=== PATIENT | female | born 1960 | race Caucasian/White ===

== ENCOUNTER → 2018-11-20 | Outpatient (CLI) | payer OTHER ==
--- NOTE | 2018-11-20 18:19 | CONS ---
Assessment/Plan Assessment/Plan Hospital Course (Demo Recall) This is a 58-year-old morbidly obese female with right knee pain. She has fairly advanced osteoarthritis of her right knee. On examination though most of her pain is over patellar tendon from patellar tendinitis. At this time I think she will benefit from conservative management. I had a very long discussion with her regarding the importance of weight loss and how it will impact her knee pain specifically progression of her arthritis as well as her overall health. I offered her a steroid injection for her arthritic pain however she deferred this today. Plan: Diclofenac gel for patella tendinitis and OA. Physical therapy for patella tendinitis and knee osteoarthritis Low impact activity Ice Weight loss Follow-up PRN Consultation Date/Type/Reason Admit Date/Time Date of Consultation: Nov 20, 2018 Reason for Consultation Right knee pain Date/Time of Note DATE: 11/20/18 TIME: 18:12 Hx of Present Illness Is a 58-year-old female with a chief complaint of right knee pain. The pain began many years ago. She fell off a horse and tore her ACL at age 18. She was treated nonoperatively. She has had pain ever since. Has continued to worsen over the last several years. The patients pain is in the anterior greater than medial aspect of the right knee. Pain is not radiating to the lower leg. The pain is rated as a 6/10 and is described as sharp, throbbing, electrical. Patient denies complaints of numbness or tingling. The pain is exacerbated by climbing stairs and ambulation. Pain is not relieved by NSAID's. Patient has been taking ibuprofen on a p.r.n. basis as well as using ice. Duration: Years Injury: ACL tear at age 18 Walking tolerance: 1 block Limp: Yes Support: Crutches at times Swelling: yes Crepitation: Yes Instability: No Stairs: Uses banister Physical Therapy: No Injections: No NSAIDs: Ibuprofen as needed Prior surgery: No Back pain: No Hip pain: No Risk of AVN : No Patient denies fever, chills, shortness of breath, chest pain, nausea/vomiting, constipation, diarrhea, numbness, and tingling. Past Medical History Depression Morbid obesity Past Surgical History Past Surgical Hx: noncontributory Family History Significant Family History: no pertinent family hx Social History Alcohol Use: occasionally Smoking Status: Former smoker Drug Use: none Exam/Review of Systems Exam Vitals Weight: 326 pounds Height: 5 foot 6 inches BMI: 52 Temperature: 90.4 Heart Rate: 70 Blood Pressure: 136/85 Respiratory Rate: 12 Exam General: Alert, oriented x3. No Acute Distress. Heart: Regular rate and rhythm. Lungs: No respiratory distress. No accessory muscle use. Musculoskeletal: Right Knee This is a well developed morbidly obese female who is alert, oriented times three and in no apparent distress. Skin is intact over the right knee as well as the lower extremity with no abrasions, lacerations, or ulcerations. Observation of the patient's gait reveals an antalgic gait with No thrust. Frontal plane alignment is neutral. There is pain on palpation of patella tendon and mild tenderness to palpation over the medial joint line. The patient demonstrates grinding anteriorly with ROM. Range of motion: 0 extension to approximately 90 degrees of flexion. Collateral ligament testing reveals no instability with varus or valgus stress at 0 and 30 degrees of flexion. Negative Elliott's and negative posterior drawer. Neurovascularly intact with 5/5 EHL/tibialis anterior/gastroc. Sensation intact to light touch in a sural, saphenous, deep peroneal, superficial peroneal, medial and lateral plantar nerve distribution. Palpable, symmetric dorsalis pedis and posterior tibial pulses in both lower extremities. Hip examination normal. Imaging Imaging The patient received a standard set of films today that were personally reviewed. Imaging included a standing bilateral knee AP, PA flexion, merchant views and a dedicated lateral of the affected knee: There is neutral alignment of the knee. There is moderate to severe loss of susan nt space in all 3 compartment(s). There is osteophyte formation. There is subchondral sclerosis. There are subchondral cysts. Degenerative changes are most severe in the medial compartment(s) SHARON DODD MD Nov 20, 2018 18:19
--- NOTE | 2018-11-21 10:24 | RADRPT ---
PROCEDURE: XR Knees. CLINICAL INDICATION: Bilateral knee pain. TECHNIQUE: Total of eight views. Weightbearing frontal, oblique, and lateral views of the both kne es. Patellar views of both knees. COMPARISON: No prior study is available for comparison. FINDINGS: There is no fracture or dislocation. The soft tissues are normal. There are degenerative changes with osteophytes arising from all 3 joint compartments. There is a rig ht knee medial compartment narrowing and deformity. There is a left knee medial joint compartment henri rowing. There is no lytic or blastic lesion. There is no radiopaque foreign body. IMPRESSION: 1. Severe degenerative changes of the right knee. 2. Moderate degenerative changes of the left knee. 3. Otherwise unremarkable study. RPTAT: QQ .Leonel Childress MD, MD Date Time Electronically viewed and signed by .Leonel Childress MD, on 11/21/2018 10:23 .R/
== END | disposition home or self-care (01) ==
LOC: HKI 15:38
PROVIDERS: ATTEND Orthopaedic Surgery Adult Reconstructive Orthopaedic Surgery
DX: M25.561 Pain in right knee (principal); F32.9 Major depressive disorder, single episode, unspecified; E66.01 Morbid (severe) obesity due to excess calories
CPT/HCPCS: 73564; Z7500; G0463